=== PATIENT | female | born 1995 | race African-American/Black ===

== ENCOUNTER 2017-12-24 17:45 | Emergency (ER) | payer OTHER ==
[~2017-12-24] VITALS: Ht 167.6 cm; Wt 89.3 kg
[2017-12-24 17:53] VITALS: BP 137/92
[2017-12-24] MEDS ORDERED: IBUPROFEN 200 MG TABLET PO ONE (20:00)
== END 2017-12-24 20:34 | disposition home or self-care (01) ==
LOC: ED 20:15
DX: S83.421A Sprain of lateral collateral ligament of right knee, initial encounter (principal); X50.1XXA Overexertion from prolonged static or awkward postures, initial encounter; Y93.89 Activity, other specified; Y92.098 Other place in other non-institutional residence as the place of occurrence of the external cause; Y99.8 Other external cause status
CPT/HCPCS: 29505; 99284

== ENCOUNTER 2018-01-19 22:53 | Emergency (ER) | payer MEDICAID, OTHER ==
[~2018-01-19] VITALS: Ht 170.2 cm; Wt 89.0 kg
[2018-01-20 00:23] LABS: HCG UR SG 1.028 (1.003-1.030); MICROSCOPIC AUTO
[2018-01-20 00:28] LABS: CULTURE INDICATED? YES
[2018-01-20 00:55] LABS: BASOPHILS # (AUTO) 0.14 x10^3/uL (0-0.1); BASOPHILS % (AUTO) 2 % (0-1); EOSINOPHILS # (AUTO) 0.07 x10^3/uL (0-0.4); EOSINOPHILS % (AUTO) 1 % (1-7); LYMPHOCYTES % (AUTO) 41 % (22-44); MD NO; MEAN CORPUSCULAR HEMOGLOBIN 29.8 pg (27.0-34.8); MEAN CORPUSCULAR HGB CONC 33.3 g/dL (32.4-35.8); MEAN CORPUSCULAR VOLUME 89.4 fL (80-100); MEAN PLATELET VOLUME 8.6 fL (7.4-10.4); MONOCYTES # (AUTO) 0.71 x10^3/uL (0.2-0.8); MONOCYTES % (AUTO) 10 % (2-9); NEUTROPHILS # (AUTO) 3.09 x10^3/uL (1.8-6.8); NEUTROPHILS % (AUTO) 45 % (42-75); PLATELET COUNT 301 x10^3/uL (130-400); RED BLOOD COUNT 4.57 x10^6/uL (3.82-5.3); RED CELL DISTRIBUTION WIDTH 13.4 % (9.6-15.2)
[2018-01-20 00:56] LABS: ALANINE AMINOTRANSFERASE 27 U/L (12-78); ALBUMIN 3.7 g/dL (3.4-5.0); ANION GAP 7 mmol/L (5-15); CALCIUM 8.9 mg/dL (8.5-10.1); CHLORIDE 110 mmol/L (98-107); CREATININE 0.82 mg/dL (0.55-1.02)
[2018-01-20 01:01] LABS: ALKALINE PHOSPHATASE 79 U/L (45-117); BILIRUBIN,TOTAL 0.3 mg/dL (0.2-1.0); TOTAL PROTEIN 7.2 g/dL (6.4-8.2)
[2018-01-20 02:03] LABS: CLUE CELLS NONE SEEN (NONE SEEN); WET PREP WBCS NONE SEEN (FEW)
[2018-01-20 03:08] VITALS: BP 117/78
== END 2018-01-20 03:21 | disposition home or self-care (01) ==
LOC: ED 23:59
DX: N39.0 Urinary tract infection, site not specified (principal)
CPT/HCPCS: 36415; 80053; 81001; 81025; 84703; 85025; 87077; 87086; 87186; 87210; 87491; 87591; 87808; 99284

== ENCOUNTER 2018-01-27 21:50 | Emergency (ER) | payer MEDICAID ==
[~2018-01-27] VITALS: Ht 167.6 cm; Wt 84.5 kg
[2018-01-27 22:19] LABS: MEAN CORPUSCULAR HGB CONC 33.8 g/dL (32.4-35.8); MEAN CORPUSCULAR VOLUME 88.8 fL (80-100); MEAN PLATELET VOLUME 8.6 fL (7.4-10.4); PLATELET COUNT 274 x10^3/uL (130-400); RED BLOOD COUNT 4.47 x10^6/uL (3.82-5.3); RED CELL DISTRIBUTION WIDTH 13.6 % (9.6-15.2)
[2018-01-27 22:33] LABS: ALBUMIN 3.7 g/dL (3.4-5.0); ANION GAP 7 mmol/L (5-15); CALCIUM 8.9 mg/dL (8.5-10.1); CHLORIDE 108 mmol/L (98-107); CREATININE 0.78 mg/dL (0.55-1.02)
[2018-01-27 22:37] LABS: BASOPHILS # (AUTO) 0.07 x10^3/uL (0-0.1); BASOPHILS % (AUTO) 1 % (0-1); EOSINOPHILS # (AUTO) 0.04 x10^3/uL (0-0.4); EOSINOPHILS % (AUTO) 1 % (1-7); LYMPHOCYTES # (AUTO) 2.01 x10^3/uL (1-3.4); LYMPHOCYTES % (AUTO) 32 % (22-44); MD SCAN; MONOCYTES # (AUTO) 0.58 x10^3/uL (0.2-0.8); MONOCYTES % (AUTO) 9 % (2-9); NEUTROPHILS # (AUTO) 3.61 x10^3/uL (1.8-6.8); NEUTROPHILS % (AUTO) 57 % (42-75)
[2018-01-27 22:38] LABS: ACETAMINOPHEN < 2 mcg/mL (10-30); SALICYLATE LEVEL < 1.7 mg/dL (2.8-20.0)
[2018-01-27 23:28] LABS: AMPHETAMINE SCREEN, URINE Negative (Negative); BARBITURATE SCREEN, URINE Negative (Negative); BENZODIAZEPINE SCREEN, URINE Negative (Negative); CANNABINOID SCREEN, URINE Positive (Negative); COCAINE SCREEN, URINE Negative (Negative); METHADONE SCREEN, URINE Negative (Negative); OPIATE SCREEN, URINE Negative (Negative)
[2018-01-28 04:32] VITALS: BP 123/80
== END 2018-01-28 05:04 | disposition home or self-care (01) ==
LOC: ED 01-28 00:16
DX: F41.1 Generalized anxiety disorder (principal); Z79.899 Other long term (current) drug therapy
CPT/HCPCS: 36415; 80048; 80307; 80329; 82040; 84703; 85025; 99284; G0480

== ENCOUNTER 2020-01-14 06:29 | Emergency (ER) | payer MEDICAID ==
[~2020-01-14] VITALS: Ht 170.2 cm; Wt 93.4 kg
--- NOTE | 2020-01-14 06:50 | NUR ---
REPORT TO SHANELLE JUAREZPOLISHING PAD MOUNTER OF CARE
--- NOTE | 2020-01-14 06:56 | NUR ---
report from jose juan
[2020-01-14 08:10] LABS: BASOPHILS # (AUTO) 0.05 x10^3/uL (0-0.1); BASOPHILS % (AUTO) 1 % (0-1); EOSINOPHILS # (AUTO) 0.08 x10^3/uL (0-0.4); EOSINOPHILS % (AUTO) 1 % (1-7); LYMPHOCYTES % (AUTO) 49 % (22-44); MD NO; MEAN CORPUSCULAR HEMOGLOBIN 30.4 pg (27.0-34.8); MEAN CORPUSCULAR HGB CONC 32.9 g/dL (32.4-35.8); MEAN PLATELET VOLUME 8.5 fL (7.4-10.4); MONOCYTES # (AUTO) 0.67 x10^3/uL (0.2-0.8); MONOCYTES % (AUTO) 9 % (2-9); NEUTROPHILS # (AUTO) 3.02 x10^3/uL (1.8-6.8); NEUTROPHILS % (AUTO) 40 % (42-75); PLATELET COUNT 310 x10^3/uL (130-400); RED BLOOD COUNT 4.62 x10^6/uL (3.82-5.3); RED CELL DISTRIBUTION WIDTH 13.9 % (9.6-15.2)
[2020-01-14 08:13] LABS: ANION GAP 7 mmol/L (5-15); CALCIUM 9.4 mg/dL (8.5-10.1); CHLORIDE 110 mmol/L (98-107)
--- NOTE | 2020-01-14 08:14 | NUR ---
PT IN US
[2020-01-14 08:23] LABS: ALANINE AMINOTRANSFERASE 37 U/L (12-78)
[2020-01-14 08:26] LABS: ALKALINE PHOSPHATASE 70 U/L (45-117); BILIRUBIN,TOTAL 0.3 mg/dL (0.2-1.0); CREATININE 0.79 mg/dL (0.55-1.02)
[2020-01-14 08:27] LABS: TOTAL PROTEIN 7.6 g/dL (6.4-8.2)
[2020-01-14 08:28] VITALS: BP 135/77
--- NOTE | 2020-01-14 09:38 | NUR ---
PT STRAIGHT CATH OBTAINED. PT TOLERATED. PT READY FOR PELVIC EXAM
[2020-01-14 09:59] LABS: MICROSCOPIC AUTO
[2020-01-14] MEDS ORDERED: AZITHROMYCIN 500 MG TABLET PO ONE (10:00)
--- NOTE | 2020-01-14 10:30 | NUR ---
LABS PENDING. PT RESTING, NO NEEDS A THIS TIME
[2020-01-14] MEDS ORDERED: AZITHROMYCIN 500 MG TABLET ONE (10:49)
--- NOTE | 2020-01-14 11:16 | NUR ---
WAITING FOR WET PREP RESULTS, THEN DC SOON
[2020-01-14 11:35] LABS: CLUE CELLS PRESENT (NONE SEEN); WET PREP WBCS FEW (FEW)
== END 2020-01-14 11:24 | disposition left against medical advice (07) ==
LOC: ED 08:19
DX: R10.30 Lower abdominal pain, unspecified (principal); N93.9 Abnormal uterine and vaginal bleeding, unspecified; F33.9 Major depressive disorder, recurrent, unspecified
CPT/HCPCS: 36415; 76830; 80053; 81001; 84703; 85025; 87210; 87491; 87591; 87808; 99284

== ENCOUNTER 2020-03-16 06:44 | Emergency (ER) | payer OTHER, MEDICAID ==
[~2020-03-16] VITALS: Ht 170.2 cm; Wt 92.9 kg
--- NOTE | 2020-03-16 07:15 | NUR ---
first contact with pt. pt stated"i might be . i also might have some stds." pt c/o cramping pain with nausea. pt's aox4. resps even and unlabored. pt also stated"i had 2 periods in 1 month." lmp 4 days ago per pt. a2. bp/spo2 monitors in place. call light within reach.
[2020-03-16] MEDS ORDERED: CEFTRIAXONE 250 MG IM ONE (07:30)
[2020-03-16] MEDS ORDERED: AZITHROMYCIN 500 MG TABLET PO ONE (07:30)
[2020-03-16] MEDS ORDERED: CEFTRIAXONE 250 MG ONE (07:32)
[2020-03-16] MEDS ORDERED: AZITHROMYCIN 250 MG TABLET ONE (07:32)
--- NOTE | 2020-03-16 07:38 | NUR ---
pt medicated per emar. pt tolerated well.
[2020-03-16 07:54] LABS: HCG UR SG 1.023 (1.003-1.030)
[2020-03-16 08:02] LABS: CLUE CELLS PRESENT (NONE SEEN); WET PREP WBCS NONE SEEN (FEW)
[2020-03-16 08:35] VITALS: BP 128/88
--- NOTE | 2020-03-16 08:53 | NUR ---
pa at bedside to explain all results at this time.
--- NOTE | 2020-03-16 09:28 | NUR ---
Patient given discharge instructions and they have confirmed that they understand the instructions.
== END 2020-03-16 09:29 | disposition home or self-care (01) ==
LOC: ED 07:03
DX: N76.0 Acute vaginitis (principal); B96.89 Other specified bacterial agents as the cause of diseases classified elsewhere; Z20.2 Contact with and (suspected) exposure to infections with a predominantly sexual mode of transmission
CPT/HCPCS: 81025; 87210; 87491; 87591; 87808; 96372; 99283; J0696

== ENCOUNTER 2020-05-27 08:48 | Emergency (ER) | payer OTHER, MEDICAID ==
[~2020-05-27] VITALS: Ht 170.2 cm; Wt 95.5 kg
[2020-05-27 08:51] VITALS: BP 137/81
--- NOTE | 2020-05-27 08:58 | NUR ---
PT STATES SHE HAS AN ABCESS UPPER AREA BETWEEN HER BUTTOCKS. HAS NOT HAD ONE BEFORE.
[2020-05-27] MEDS ORDERED: LIDOCAINE-MPF 1%, 5ML ONE (09:07)
--- NOTE | 2020-05-27 09:12 | NUR ---
AT BEDSIDE INTRODUCING LIDO INTO ABCESS
--- NOTE | 2020-05-27 09:38 | NUR ---
I&D COMPLETED. AMBULATED TO DISCHARGE WINDOW STEADY GAIT.
== END 2020-05-27 09:40 | disposition home or self-care (01) ==
LOC: ED 09:28
DX: K61.0 Anal abscess (principal)
CPT/HCPCS: 46050; 99284

== ENCOUNTER 2020-06-17 16:24 | Emergency (ER) | payer OTHER, MEDICAID ==
[~2020-06-17] VITALS: Ht 170.2 cm; Wt 97.3 kg
--- NOTE | 2020-06-17 18:09 | NUR ---
Pt ambulatory to room from lobby with steady gait.
[2020-06-17] MEDS ORDERED: IBUPROFEN 600 MG TABLET PO ONE (18:30)
--- NOTE | 2020-06-17 18:42 | NUR ---
TASK RN: DC EDUCATION PROVIDED, PT DEMONSTRATES UNDERSTANDING. PT AMBULATED STEADILY TO DC W RN
[2020-06-17 18:43] VITALS: BP 128/60
[2020-06-17] MEDS ORDERED: IBUPROFEN 600 MG TABLET ONE (18:44)
== END 2020-06-17 18:49 | disposition home or self-care (01) ==
LOC: ED 18:43
DX: S39.012A Strain of muscle, fascia and tendon of lower back, initial encounter (principal); R20.0 Anesthesia of skin; X58.XXXA Exposure to other specified factors, initial encounter; Y93.89 Activity, other specified; Y92.89 Other specified places as the place of occurrence of the external cause; Y99.8 Other external cause status
CPT/HCPCS: 72110; 99283

== ENCOUNTER 2020-09-01 01:33 | Emergency (ER) | payer OTHER, MEDICAID ==
[~2020-09-01] VITALS: Ht 172.7 cm; Wt 100.0 kg
[2020-09-01] MEDS ORDERED: METHOCARBAMOL 750 MG TABLET PO ONE (02:00)
[2020-09-01] MEDS ORDERED: KETOROLAC 30 MG/1 ML IM ONE (02:00)
[2020-09-01] MEDS ORDERED: KETOROLAC 60 MG/2 ML ONE (02:03)
[2020-09-01] MEDS ORDERED: METHOCARBAMOL 750 MG TABLET ONE (02:03)
--- NOTE | 2020-09-01 02:13 | NUR ---
CC OF LOWER BACK PAIN IN TAILBONE AREA THAT SPREADS TO MUSCLE ON BOTH RIGHT AND LEFT SIDES. PT STATES SHE LIFTS METAL PLATES AT WORK REPEATEDLY AND BELIEVES THAT HAS CAUSED THE PAIN. PT HAS BEEN SEEN HERE BEFORE FOR SAME.
[2020-09-01 02:30] VITALS: BP 130/78
== END 2020-09-01 03:04 | disposition home or self-care (01) ==
LOC: ED 02:06
DX: S39.012A Strain of muscle, fascia and tendon of lower back, initial encounter (principal); X58.XXXA Exposure to other specified factors, initial encounter; Y93.89 Activity, other specified; Y92.89 Other specified places as the place of occurrence of the external cause; Y99.8 Other external cause status
CPT/HCPCS: 96372; 99283; J1885

== ENCOUNTER 2020-09-17 19:53 | Emergency (ER) | payer OTHER, MEDICAID ==
[~2020-09-17] VITALS: Ht 170.2 cm; Wt 100.7 kg
[2020-09-17 19:59] VITALS: BP 131/82
--- NOTE | 2020-09-17 20:11 | NUR ---
PT RESTING ON RACQUELRJOHN PROVIDER AT BEDSIDE AT THIS TIME.
[2020-09-17] MEDS ORDERED: HYDROcodone/APAP 5/325 TABLET ONE (20:20)
--- NOTE | 2020-09-17 20:27 | NUR ---
PT MEDICATED PER MAR TOLERATED WELL, AWAITING DC
[2020-09-17] MEDS ORDERED: HYDROcodone/APAP 5/325 TABLET PO ONE (20:30)
--- NOTE | 2020-09-17 20:41 | NUR ---
Patient/Caregiver given discharge instructions and they have confirmed that they understand the instructions. Patient ambulatory with steady gait.
== END 2020-09-17 20:42 | disposition home or self-care (01) ==
LOC: ED 20:26
DX: K02.9 Dental caries, unspecified (principal)
CPT/HCPCS: 99283

== ENCOUNTER 2020-11-11 03:46 | Emergency (ER) | payer OTHER, MEDICAID ==
[~2020-11-11] VITALS: Ht 170.2 cm; Wt 80.0 kg
--- NOTE | 2020-11-11 04:10 | NUR ---
PT AMBULATED TO RESTROOM WITH STEADY GAIT. UA CUP PROVIDED FOR SAMPLE.
--- NOTE | 2020-11-11 04:22 | NUR ---
UA COLLECTED AND SENT TO LAB. WARM BLANKET PROVIDED TO PT.
[2020-11-11 04:37] LABS: BASOPHILS % (AUTO) 1 % (0-1); EOSINOPHILS % (AUTO) 2 % (1-7); LYMPHOCYTES % (AUTO) 45 % (22-44); MEAN CORPUSCULAR HEMOGLOBIN 31.3 pg (27.0-34.8); MEAN CORPUSCULAR HGB CONC 34.2 g/dL (32.4-35.8); MONOCYTES % (AUTO) 9 % (2-9); NEUTROPHILS % (AUTO) 43 % (42-75); PLATELET COUNT 320 x10^3/uL (130-400); RED BLOOD COUNT 4.23 x10^6/uL (3.82-5.3); RED CELL DISTRIBUTION WIDTH 13.5 % (9.6-15.2)
[2020-11-11 04:38] LABS: MD NO
[2020-11-11 04:51] LABS: ALANINE AMINOTRANSFERASE 31 U/L (12-78); ALBUMIN 3.5 g/dL (3.4-5.0); ANION GAP 4 mmol/L (5-15); CALCIUM 8.2 mg/dL (8.5-10.1); CHLORIDE 108 mmol/L (98-107); CREATININE 0.87 mg/dL (0.55-1.02)
[2020-11-11 04:55] LABS: MICROSCOPIC INDICATED
[2020-11-11 04:55] LABS: ALKALINE PHOSPHATASE 73 U/L (45-117); BILIRUBIN,TOTAL 0.3 mg/dL (0.2-1.0); TOTAL PROTEIN 7.1 g/dL (6.4-8.2)
--- NOTE | 2020-11-11 06:48 | NUR ---
REPORT TO ANN BONILLA
--- NOTE | 2020-11-11 06:52 | NUR ---
ASSUMED CARE OF PT FROM ANN WINTER. PT RESTING IN [facility], MONITORING IN PLACE, [place] AT THIS TIME, PER PT NO NEEDS, AWAITING US RESULTS AT THIS TIME, PT AWARE OF PLAN, WCTM.
[2020-11-11 07:01] VITALS: BP 115/57
--- NOTE | 2020-11-11 07:20 | NUR ---
PT PROVIDED DISCHARGE INSTURCTIONS AND EDUCATION. ALL QUESTIONS ANSWERED. PT AMBULATED STEADILY TO DISCHARGE DESK.
== END 2020-11-11 07:21 | disposition home or self-care (01) ==
LOC: ED 05:08
DX: K80.20 Calculus of gallbladder without cholecystitis without obstruction (principal); R10.13 Epigastric pain; R11.0 Nausea
CPT/HCPCS: 36415; 76700; 80053; 81001; 83690; 84703; 85025; 87086; 99284

== ENCOUNTER 2021-01-11 06:21 | Emergency (ER) | payer OTHER, MEDICAID ==
[~2021-01-11] VITALS: Ht 170.2 cm; Wt 98.2 kg
--- NOTE | 2021-01-11 06:30 | NUR ---
INITIAL PT CONTACT. PT PRESENTS TO ED C/O LEFT LOWER ABD QUAD PAIN X1 WEEK. "I HAVE BEEN TRYING TO HAVE A BABY AND I WAS LATE ON MY PERIOD, LMP December. I JUST NOTICE VERY LIGHT BLEEDING WHEN I WIPE GOING TO THE BATHROOM. I HAVEN'T POOPED IN ABOUT 1 WEEK EITHER, I HAD LITTLE PELLET POOP TODAY BUT NOT A FULL BOWEL MOVEMENT." PT SITTING UPRIGHT ON [facility] VSS. PT DENIES ANY NEEDS AT THIS TIME. CALL LIGHT AND BELONGINGS WITHIN REACH. AWAITING ERP.
--- NOTE | 2021-01-11 06:59 | NUR ---
PT AMBULATED TO THE BR W/ A STEADY GAIT TO ATTEPT URINE SAMPLE.
[2021-01-11 07:13] LABS: BASOPHILS % (AUTO) 1 % (0-1); EOSINOPHILS % (AUTO) 2 % (1-7); LYMPHOCYTES % (AUTO) 49 % (22-44); MEAN CORPUSCULAR HEMOGLOBIN 31.3 pg (27.0-34.8); MEAN CORPUSCULAR HGB CONC 34.4 g/dL (32.4-35.8); MEAN PLATELET VOLUME 7.7 fL (7.4-10.4); MONOCYTES % (AUTO) 8 % (2-9); NEUTROPHILS % (AUTO) 41 % (42-75); PLATELET COUNT 312 x10^3/uL (130-400); RED CELL DISTRIBUTION WIDTH 13.8 % (9.6-15.2)
[2021-01-11 07:15] LABS: MICROSCOPIC INDICATED
--- NOTE | 2021-01-11 07:20 | NUR ---
US AT BEDSIDE, THIS RN AT BEDSIDE TO [employer]CE WORK[employer].
--- NOTE | 2021-01-11 08:11 | NUR ---
ALL TESTS RESULTED. PT IS UP FOR RECHECK AT THIS TIME.
[2021-01-11 08:30] VITALS: BP 135/88
--- NOTE | 2021-01-11 08:46 | NUR ---
Patient given discharge instructions and they have confirmed that they understand the instructions. Patient ambulatory with steady gait.
== END 2021-01-11 08:54 | disposition home or self-care (01) ==
LOC: ED 08:30
DX: R10.32 Left lower quadrant pain (principal); R11.0 Nausea
CPT/HCPCS: 36415; 74018; 76830; 81001; 84703; 85025; 99285

== ENCOUNTER 2021-02-06 23:54 | Emergency (ER) | payer OTHER, MEDICAID ==
[~2021-02-06] VITALS: Ht 170.2 cm; Wt 95.5 kg
[2021-02-06 23:56] VITALS: BP 130/81
--- NOTE | 2021-02-07 00:25 | NUR ---
COVID SWAB/ STREP SWAB WALKED TO LAB BY THIS RN.
[2021-02-07] MEDS ORDERED: IBUPROFEN 800 MG TABLET PO ONE (00:30)
[2021-02-07] MEDS ORDERED: IBUPROFEN 800 MG TABLET ONE (00:30)
--- NOTE | 2021-02-07 02:22 | NUR ---
Patient discharge instructions and they have confirmed that they understand the instructions. Patient ambulatory with steady gait. NAD, all questions answered appropriately, denies additional needs at this time. No personal belongings left in room after discharge.
== END 2021-02-07 02:23 | disposition home or self-care (01) ==
LOC: ED 02-07 00:24
DX: J06.9 Acute upper respiratory infection, unspecified (principal); Z20.822 Contact with and (suspected) exposure to COVID-19; R06.00 Dyspnea, unspecified; R05 Cough
CPT/HCPCS: 71045; 87081; 87880; 99284; U0003; U0005